=== PATIENT | male | born 1990 | race Two or more races ===

== ENCOUNTER → 2018-02-03 | Outpatient (CLI) | payer OTHER ==
[2018-02-09 07:43] LABS: M001-IGE PENICILLIUM CHRYSOGEN <0.10 kU/L (Class 0); M002-IGE CLADOSPORIUM HERBARUM <0.10 kU/L (Class 0); M003-IGE ASPERGILLUS FUMIGATUS <0.10 kU/L (Class 0); M004-IGE MUCOR RACEMOSUS <0.10 kU/L (Class 0); M005-IGE CANDIDA ALBICANS <0.10 kU/L (Class 0); M006-IGE ALTERNARIA ALTERNATA <0.10 kU/L (Class 0); M009-IGE FUSARIUM PROLIFERATUM <0.10 kU/L (Class 0); M012-IGE AUREOBASIDI PULLULANS <0.10 kU/L (Class 0); M013-IGE PHOMA BETAE <0.10 kU/L (Class 0); M014-IGE EPICOCCUM PURPURASCEN <0.10 kU/L (Class 0)
[2018-02-09 07:59] LABS: M010-IGE STEMPHYLIUM HERBARUM <0.10 kU/L (Class 0)
== END ==
LOC: OD 16:28
PROVIDERS: ATTEND Otolaryngology
DX: J34.89 Other specified disorders of nose and nasal sinuses (principal); R09.81 Nasal congestion
CPT/HCPCS: 36415; 82785; 86003

== ENCOUNTER 2018-04-26 08:47 | Day surgery (SDC) | payer OTHER ==
[~2018-04-26 08:47] MED LIST: CEFAZOLIN 2 GM/D5W RTU 2 GM/50 ML RTUPB IV PRN; DEXAMETHASONE SOD PHOS INJ 10 MG/1 ML VIAL ONE; DEXMEDETOMIDINE INJ 80 MCG/20 ML VIAL IV ONE; FAMOTIDINE INJ/PF 20 MG/2 ML SDV IV ONE; FENTANYL CITRATE INJ/PF 100 MCG/2 ML AMPUL ONE; GLYCOPYRROLATE INJ 0.4 MG/2 ML VIAL ONE; LACTATED RINGERS 1000 ML IV PRN; LIDOCAINE 0.5% INJ-PF (5 MG/ML) 50 ML SDV SUBCUT PRN; LIDOCAINE 2% INJ-PF (20 MG/ML) 10 ML AMPUL ONE; PROPOFOL INJ 200 MG/20 ML VIAL IV ONE; SUCCINYLCHOLINE CHLORIDE INJ 200 MG/10 ML VIAL ONE
[2018-04-26] MEDS ORDERED: SCOPOLAMINE HYDROBROMIDE 1.5 MG PATCH.TD72 TD PRN (08:48)
[2018-04-26] MEDS ORDERED: RINGERS SOLUTION,LACTATED 250 ML IV PRN (08:48)
[2018-04-26] MEDS ORDERED: METOCLOPRAMIDE HCL INJ/PF 10 MG/2 ML SDV ONE (11:12)
[2018-04-26] MEDS ORDERED: MIDAZOLAM 2 MG/2 ML INJ ONE (11:15)
[2018-04-26] MEDS ORDERED: MINERAL OIL (STERILE) 10 ML VIAL ONE (11:18)
[2018-04-26] MEDS ORDERED: BUPIVACAINE HCL 0.5%/EPI 1:200000 INJ 1.8 ML CARTRIDGE ONE ×2 (11:18→11:58)
[2018-04-26] MEDS ORDERED: OXYMETAZOLINE HCL 0.05% NASAL SPRAY 15 ML BOTTLE ONE (11:19)
[2018-04-26] MEDS ORDERED: HYDROCODONE/ACETAMINOPHEN 5-325 MG TABLET ONE (15:46)
--- NOTE | 2018-05-02 10:06 | OPERATIVE REPORT E ---
Operative Report NAME: JANEL MIRELES : 1990 AGE: 27Y DATE OF SURGERY: 04/26/2018 ROOM: PREOPERATIVE DIAGNOSES: 1. Nasal septal deviation, acquired. 2. Bilateral inferior turbinate hypertrophy. 3. Nasal deformities, acquired. 4. Chronic nasal dyspnea. 5. History of previous inferior turbinate reduction surgery. POSTOPERATIVE DIAGNOSES: 1. Nasal septal deviation, acquired. 2. Bilateral inferior turbinate hypertrophy. 3. Nasal deformities, acquired. 4. Chronic nasal dyspnea. 5. History of previous inferior turbinate reduction surgery. OPERATION PERFORMED: 1. Endonasal/closed septorhinoplasty with the lower lateral cartilages addressed with cartilage grafting and with tip elevation, support, and stabilization. 2. Revision bilateral inferior turbinate reduction. SURGEON: DEVIN BOYKIN D.O. ANESTHETIC: General endotracheal tube. ANESTHESIA STAFF: MICKI Ramsay ESTIMATED BLOOD LOSS: 50 mL. FLUIDS: 1500 mL. COMPLICATIONS: None. DRAINS: None. SPONGE COUNT: Verified. NEEDLE COUNT: Verified. MATERIALS FORWARDED SPECIMEN: None. FINDINGS: 1. Nasal septal deviation involving bone and cartilage along with a maxillary crest spur/septal spur. 2. Bilateral nasal valve collapse, left greater than right. 3. Nasal tip complex with inadequate support. 4. Bilateral inferior turbinate hypertrophy with an excessive bony and mucosal hypertrophy component noted bilateral. INDICATIONS: This is a 27-year-old male patient who was seen and evaluated in the [facility] office. The patient had been referred for and he complained of a history of chronic nasal dyspnea over the years that has persisted despite having undergone previous bilateral inferior turbinate surgery/procedures. The patient reported that he was previously informed in another ENT practice that he had significant bilateral inferior turbinate hypertrophy and that a turbinate-only type of procedure would significantly help him. However, this turbinate-only procedure was unsuccessful to allow for long-term lasting results. The patient's nasal septal deviation and nasal valve collapse were never addressed. After extensive discussion with the patient, recommendation and plan was to proceed to the main operating room for a septorhinoplasty with cartilage grafting to address the nasal valve collapse component, provide tip elevation, support, and stabilization, and perform revision bilateral inferior turbinate surgery to address the excessive bony and mucosal hypertrophy components. The procedures and all their risks and complications were all discussed in detail with the patient. He voiced an understanding of the described surgical plan, agreed to proceed, and consent was obtained. PROCEDURE: The patient was taken to the main operating room and placed on the operating room table in the supine position. Appropriate monitors were placed. Using mask and IV access, general anesthesia was induced. The patient was transorally intubated without difficulty. The patient was then positioned for nasal surgery. He underwent a nasal examination with injection of local anesthetic with epinephrine. The patient next had 2 Afrin-soaked Neuro Patties that were placed per nasal passage. The patient was then prepped and draped in the usual fashion for nasal surgery. At this point the patient underwent a hemitransfixion incision with elevation of the mucoperichondrial and mucoperiosteal flaps without difficulty. The bony cartilaginous junction was identified and divided, and the most deviated portions of septal cartilage and bone were removed. The maxillary crest spur/septal spur were also addressed with a B chisel and removed without difficulty. At this point cartilage that would be used for cartilage grafting was removed and saved for later in the case. There was a greater than 1.5 x 1.5 cm cartilaginous L-strut preserved. At this point the turbinate bipolar wand was used to make 2 passes in each inferior turbinate. The anterior aspect of each inferior turbinate was entered with a pair of Erich scissors followed by submucosal elevation with a Auburn elevator. The anterior aspect of turbinate bone was resected on each side with use of a pair of Takahashis. This was performed without difficulty. The turbinate microdebrider system was next used at a setting of 1500 rpm to perform submucous resection on each side. Once complete excessive redundant mucosa was trimmed, the margins were reapproximated with 5-0 chromic suture. Lastly, a Kim elevator was used to outfracture each inferior turbinate. At this point the rhinoplasty portion of the case was addressed in the following manner: There were modified marginal incisions performed on each side followed by creation of side pockets for the alar grafts to be inserted into. There was elevation of tissue in a subperichondrial/subperiosteal plane. Dorsal rasp work was performed without difficulty. At this point the fashioned fat grafts were inserted into their precise pockets and held in place with [id number] 5-0 Prolene suture and Telfa cotton bolsters overlying skin and mucosa. At this point the nose was irrigated and thoroughly suctioned. There was adequate hemostasis noted. Remaining cartilage was placed back between the mucosal flaps and gan. There was a 5-0 Prolene suture that was also used to perform a wonderbra tip elevation/stabilization suture. There had also been a precise pocket created between the medial crura/medial crural footplate. At this point all incisions were reapproximated with 5-0 chromic suture. The patient next had 1 Hughes silicone nasal splint placed per side and these were secured at the caudal aspect with 4-0 Prolene suture. At this point the patient was returned to the anesthesia staff and was allowed to emerge from general anesthesia. The patient was extubated in the main operating room and was then transported to the postanesthesia recovery unit in stable condition. There were no complications. DICTATING PHYSICIAN: DEVIN BOYKIN D.O. [id number] PHY#: [id number] ID: [id number] JOB#: [id number] ACCT: [id number] cc:DEVIN BOYKIN D.O. >
== END 2018-04-26 16:30 | disposition home or self-care (01) ==
LOC: SC 08:47
PROVIDERS: ATTEND Otolaryngology
PROC: 09UK87Z Supplement Nasal Mucosa and Soft Tissue with Autologous Tissue Substitute, Via Natural or Artificial Opening Endoscopic (ICD-10-PCS; principal; 2018-04-26 10:15)
PROC: 09TL7ZZ Resection of Nasal Turbinate, Via Natural or Artificial Opening (ICD-10-PCS; 2018-04-26 10:15)
DX: J34.2 Deviated nasal septum (principal); J34.3 Hypertrophy of nasal turbinates; J30.9 Allergic rhinitis, unspecified; R06.09 Other forms of dyspnea; M95.0 Acquired deformity of nose
CPT/HCPCS: 30420; 20912; 30140; J2250; J3490 ×5; J3010; J2765; J0330; J2704; S0028; J1100; J0690; 160